=== PATIENT | male | born 1960 | race Caucasian/White ===

== ENCOUNTER 2017-02-20 04:54 | Emergency (ER) | payer OTHER ==
[~2017-02-20] VITALS: Ht 180.3 cm; Wt 83.5 kg
[2017-02-20 04:58] VITALS: Ht 180.3 cm; Wt 83.5 kg
[2017-02-20 06:30] VITALS: BP 112/66; PULSE 55; RESP 16; TEMP 97.6
[2017-02-20] MEDS ORDERED: SOD CHLORIDE 0.9% 1,000 ML IV STA (06:30)
[2017-02-20] MEDS ORDERED: FAMOTIDINE 20 MG INJ IV STA (06:30)
[2017-02-20] MEDS ORDERED: ONDANSETRON 4 MG INJ IV STA (06:30)
[2017-02-20 07:08] LABS: ADD SCAN DIFF NO
[2017-02-20 07:10] LABS: BASOPHIL # 0.1 10^3/ul (0.0-0.1); BASOPHILS % 0.9 % (0.0-2.0); EOSINOPHILS # 0.2 10^3/ul (0.0-0.5); EOSINOPHILS % 3.1 % (0.0-7.0); HEMATOCRIT 41.8 % (42.0-52.0); HEMOGLOBIN 14.7 g/dl (14.0-18.0); LYMPHOCYTES # 2.2 10^3/ul (0.8-2.9); LYMPHOCYTES % 37.8 % (15.0-51.0); MEAN CORPUSCULAR HEMOGLOBIN 30.6 pg (29.0-33.0); MEAN CORPUSCULAR HGB CONC 35.2 g/dl (32.0-37.0); MEAN CORPUSCULAR VOLUME 87.1 fl (82.0-101.0); MEAN PLATELET VOLUME 10.5 fl (7.4-10.4); MONOCYTE # 0.5 10^3/ul (0.3-0.9); MONOCYTES % 8.7 % (0.0-11.0); NEUTROPHIL # 2.9 10^3/ul (1.6-7.5); NEUTROPHILS % 49.3 % (39.0-77.0); PLATELET COUNT 162 10^3/UL (140-415); RED CELL DISTRIBUTION WIDTH 12.5 % (11.5-14.5); WHITE BLOOD COUNT 5.8 10^3/ul (4.8-10.8)
[2017-02-20 07:14] LABS: ADD UMIC NO; URINE BILIRUBIN (Dip) NEGATIVE (NEGATIVE); URINE BLOOD (Dip) NEGATIVE (NEGATIVE); URINE COLOR LT. YELLOW (YELLOW); URINE GLUCOSE (Dip) NEGATIVE (NEGATIVE); URINE KETONES (Dip) NEGATIVE (NEGATIVE); URINE LEUKOCYTE ESTERASE (Dip) NEGATIVE (NEGATIVE); URINE NITRITE (Dip) NEGATIVE (NEGATIVE); URINE TOTAL PROTEIN (Dip) NEGATIVE (NEGATIVE); URINE UROBILINOGEN (Dip) 0.2 E.U./dL (0.1-1.0)
[2017-02-20 07:28] LABS: ALBUMIN 4.3 g/dl (3.3-4.9); ALBUMIN/GLOBULIN RATIO 1.86; BILIRUBIN,INDIRECT 0.7 mg/dl (0-1.1); BILIRUBIN,TOTAL 0.7 mg/dl (0.2-1.3); CREATININE 0.92 mg/dl (0.61-1.24); TOTAL PROTEIN 6.6 g/dl (6.1-8.1)
[2017-02-20] MEDS ORDERED: ONDA4TAB8 PO (08:06)
[2017-02-20] MEDS ORDERED: MAG355OR14 PO (08:06)
[2017-02-20] MEDS ORDERED: IBUP-1542 PO (08:06)
--- NOTE | 2017-02-20 14:34 | ERD ---
ER Documentation Chief Complaint Date/Time DATE: 02/20/17 TIME: 14:30 Chief Complaint LEFT SIDED ABDOMINAL PAIN, NAUSEA, VOMITING X 9 SINCE 2AM, DIARRHEA HPI 57-year-old man otherwise healthy presents with left sided abdominal pain and cramping associated with about 5 episodes of clear nonbloody nonbilious emesis and a couple of loose stools beginning last night after eating tacos from a taco truck. He denies blood per rectum or melena, no fevers or chills, no chest pain or shortness of breath. ROS All systems reviewed and are negative except as per history of present illness. Medications Home Meds Active Scripts Ibuprofen* (Ibuprofen*) 600 Mg Tablet, 600 MG PO Q8 for PAIN AND/OR INFLAMMATION , #30 TAB Prov:INGA CALIX MD 02/20/17 Mag Hydrox/Al Hydrox/Simeth (Maalox Advanced Suspension) 355 Ml Oral.susp, 2 TSP PO TID, #24 OZ Prov:INGA CALIX MD 02/20/17 Ondansetron Hcl* (Zofran*) 4 Mg Tablet, 4 MG PO Q8H Y for NAUSEA AND/OR VOMITING , #14 TAB Prov:INGA CALIX MD 02/20/17 PMhx/Soc None Medical and Surgical Hx: pt denies Medical Hx, pt denies Surgical Hx Hx Alcohol Use: No Hx Substance Use: No Hx Tobacco Use: No Smoking Status: Never smoker FmHx Family History: No diabetes Physical Exam Vitals Vital Signs Date Time Temp Pulse Resp B/P Pulse Ox O2 Delivery O2 Flow Rate FiO2 02/20/17 06:30 97.6 55 16 112/66 100 Room Air 02/20/17 04:58 96.5 68 17 126/72 95 Physical Exam GENERAL: Well-developed, well-nourished, appears dehydrated HEENT: Dry mucous membranes, pink conjunctiva, no cervical spine tenderness or step-off deformities, no goiter, no jaundice or icterus, extraocular movements intact without pain. No submandibular induration, and no pharyngeal erythema NEURO: Alert and oriented 3, cranial nerves II through XII intact bilaterally, pupils equal round reactive to light, no focal deficits or facial asymmetry, sensation intact distally Strength 5/5 in upper and lower extremities bilaterally CARDIAC: Regular rate and rhythm, no murmurs rubs or gallops LUNGS: Clear bilaterally no wheezing crackles or stridor ABDOMEN: Soft nontender, no guarding, no rigidity, no rebound, no psoas sign no obturator sign. Normoactive bowel sounds SKIN: Warm and dry to touch, no abrasions, contusions, or hematomas, no lacerations, no ecchymosis, no target lesions, and without ulcers EXTREMITIES: No clubbing cyanosis or edema, calves are bilaterally symmetrical, no Homans sign, no popliteal cord sign. Distal pulses equal and bilateral PSYCH: Normal affect without agitation or irritability Result Diagram: 02/20/17 0650 02/20/17 0650 Results 24 hrs Laboratory Tests Test 02/20/17 06:50 White Blood Count 5.810^3/ul Red Blood Count 4.8010^6/ul Hemoglobin 14.7g/dl Hematocrit 41.8% Mean Corpuscular Volume 87.1fl Mean Corpuscular Hemoglobin 30.6pg Mean Corpuscular Hemoglobin Concent 35.2g/dl Red Cell Distribution Width 12.5% Platelet Count 28176^3/UL Mean Platelet Volume 10.5fl Neutrophils % 49.3% Lymphocytes % 37.8% Monocytes % 8.7% Eosinophils % 3.1% Basophils % 0.9% Nucleated Red Blood Cells % 0.0/100WBC Neutrophils # 2.910^3/ul Lymphocytes # 2.210^3/ul Monocytes # 0.510^3/ul Eosinophils # 0.210^3/ul Basophils # 0.110^3/ul Nucleated Red Blood Cells # 0.010^3/ul Urine Color LT. YELLOW Urine Clarity CLEAR Urine pH 6.0 Urine Specific [place] 1.025 Urine Ketones NEGATIVE Urine Nitrite NEGATIVE Urine Bilirubin NEGATIVE Urine Urobilinogen 0.2 E.U./dL Urine Leukocyte Esterase NEGATIVE Urine Hemoglobin NEGATIVE Urine Glucose NEGATIVE% Urine Total Protein NEGATIVE Sodium Level 139mmol/L Potassium Level 4.0mmol/L Chloride Level 109mmol/L Carbon Dioxide Level 25mmol/L Anion Gap 9 Blood Urea Nitrogen 18mg/dl Creatinine 0.92mg/dl Glucose Level 100mg/dl Calcium Level 9.0mg/dl Total Bilirubin 0.7mg/dl Direct Bilirubin 0.00mg/dl Indirect Bilirubin 0.7mg/dl Aspartate Amino Transf (AST/SGOT) 29IU/L Alanine Aminotransferase (ALT/SGPT) 33IU/L Alkaline Phosphatase 40IU/L Total Protein 6.6g/dl Albumin 4.3g/dl Globulin 2.30g/dl Albumin/Globulin Ratio 1.86 Lipase 98U/L Current Medications Medications (Trade) Dose Ordered Sig/Juan C Route PRN Reason Start Time Stop Time Status Last Admin Dose Admin Sodium Chloride (NS) 1,000 ml @ 1,000 mls/hr Q1H STAT IV 02/20/17 06:30 02/20/17 07:29 DC 02/20/17 06:58 Ondansetron HCl (Zofran Inj) 4 mg ONCE STAT IV 02/20/17 06:30 02/20/17 06:32 DC 02/20/17 06:58 Famotidine (Pepcid Iv) 20 mg ONCE STAT IV 02/20/17 06:30 02/20/17 06:32 DC 02/20/17 06:58 Procedures/MDM IV line was established patient was placed on rn cardiac rehab rhythm strip revealed a sinus rhythm at about 80 bpm with upright P and T waves. Patient was afebrile. I administered 1 L normal saline intravenously, Zofran 4 mg IV, famotidine 40 mg IV with good response. CBC was normal, electrolytes revealed dehydration, liver function tests normal, urine analysis negative for infection. Differential diagnoses considered, included but not limited to acute coronary syndrome, pulmonary embolism, aortic dissection, abdominal aortic aneurysm, sepsis, stroke, meningitis, encephalitis, pneumonia, appendicitis, cholecystitis , bowel obstruction, pyelonephritis, nephrolithiasis, cystitis, as well as metabolic, hematologic, and electrolyte abnormalities. As well as abscess, cellulitis, fractures, and dislocations. Patient feels much better at this time, and vital signs are normal, symptoms have improved. I did give strict instructions to return to the ED if symptoms continue or worsen, patient will otherwise follow-up with primary care physician. Patient understood instructions and agreed to plan. Disclaimer: Inadvertent spelling or grammatical errors are likely due to EHR/ dictation software use and do not reflect on the overall quality of patient care. Departure Diagnosis: Primary Impression: Vomiting Vomiting type: unspecified Vomiting Intractability: non-intractable Nausea presence: with nausea Qualified Code: R11.2 - Non-intractable vomiting with nausea, unspecified vomiting type Additional Impressions: Abdominal pain Abdominal location: lower abdomen, unspecified Qualified Code: R10.30 - Lower abdominal pain Dehydration Condition: Good Patient Instructions: Vomiting And Diarrhea, Nonspecific (Adult) INGA CALIX MD Feb 20, 2017 14:34
== END 2017-02-20 08:16 | disposition home or self-care (01) ==
LOC: E/R 04:54
DX: R11.2 Nausea with vomiting, unspecified (principal); R10.30 Lower abdominal pain, unspecified; E86.0 Dehydration
CPT/HCPCS: 36415; 80053; 81003; 83690; 85025; 96374; 96375; J2405; J7030; Z7502; Z7610

== ENCOUNTER 2018-07-15 16:49 | Emergency (ER) | END 2018-07-15 18:15 | disposition home or self-care (01) ==

== ENCOUNTER 2018-12-12 09:47 | Emergency (ER) | payer OTHER ==
[~2018-12-12] VITALS: Ht 172.7 cm; Wt 78.2 kg
[~2018-12-12 09:47] MED LIST: AMOX1TAB10 PO; IBUP-1542 PO; IBUP-1561 PO; MAG355OR14 PO; ONDA4TAB8 PO; PRED20TA PO
[2018-12-12 09:49] VITALS: Ht 172.7 cm; Wt 78.2 kg
[2018-12-12] MEDS ORDERED: AZITHROMYCIN 250 MG TAB PO ONE (12:00)
[2018-12-12] MEDS ORDERED: CEFTRIAXONE 250 MG INJ IM ONE (12:00)
--- NOTE | 2018-12-12 12:21 | ERD ---
ER Documentation Chief Complaint Chief Complaint AP & NUASEA AND VOMITTING X2 DAYS, SORETHROAT LAST NIGHT ROS All systems reviewed and are negative except as per history of present illness. Medications Home Meds Discontinued Scripts Ibuprofen* (Motrin*) 400 Mg Tab, 400 MG PO Q8, #15 TAB Prov:GURJIT LANGSTON MD 07/15/18 Prednisone* (Prednisone*) 20 Mg Tab, 40 MG PO DAILY for 4 Days, TAB Prov:GURJIT LANGSTON MD 07/15/18 Amoxicillin/Potassium Clav (Amox-Clav 875-125 mg Tablet) 875-125 mg Tab, 1 TAB PO BID for 10 Days, #20 TAB Prov:GURJIT LANGSTON MD 07/15/18 Ibuprofen* (Ibuprofen*) 600 Mg Tablet, 600 MG PO Q8 for PAIN AND/OR INFLAMMATION, #30 TAB Prov:INGA CALIX MD 02/20/17 Mag Hydrox/Al Hydrox/Simeth (Maalox Advanced Suspension) 355 Ml Oral.susp, 2 TSP PO TID, #24 OZ Prov:INGA CALIX MD 02/20/17 Ondansetron Hcl* (Zofran*) 4 Mg Tablet, 4 MG PO Q8H PRN for NAUSEA AND/OR VOMITING, #14 TAB Prov:INGA CALIX MD 02/20/17 Allergies Allergies: Coded Allergies: No Known Allergy (Unverified , 12/12/18) PMhx/Soc Medical and Surgical Hx: pt denies Medical Hx, pt denies Surgical Hx Hx Alcohol Use: No Hx Substance Use: No Hx Tobacco Use: No Smoking Status: Never smoker Physical Exam Vitals Vital Signs Date Temp Pulse Resp B/P (MAP) Pulse Ox O2 O2 Flow FiO2 Time Delivery Rate 12/12/18 97.8 71 18 116/70 97 09:49 (85) Physical Exam Const: No acute distress Head: Atraumatic Eyes: Normal Conjunctiva ENT: Normal External Ears, Nose and Mouth. Neck: Full range of motion. No meningismus. Resp: Clear to auscultation bilaterally Cardio: Regular rate and rhythm, no murmurs Abd: Soft, non tender, non distended. Normal bowel sounds Skin: No petechiae or rashes Back: No midline or flank tenderness Ext: No cyanosis, or edema Neur: Awake and alert Psych: Normal Mood and Affect Results 24 hrs Current Medications Medications Dose Sig/Juan C Start Time Status Last (Trade) Ordered Route PRN Stop Time Admin Dose Reason Admin Ceftriaxone 250 mg ONCE ONCE 12/12/18 DC 12/12/18 Sodium IM 12:00 11:55 (Rocephin) 12/12/18 12:01 1,000 mg ONCE ONCE 12/12/18 DC 12/12/18 Azithromycin PO 12:00 11:54 (Zithromax) 12/12/18 12:01 Procedures/MDM DOCUMENTS REVIEWED: ED nurse, prior ED, prior records MEDICAL DECISION MAKING: []. Stable for discharge with precautionary instructions and outpatient follow-up as counseled. Counseled patient patient regarding diagnostic workup, diagnosis and need for followup. Understands to return to ED if symptoms recur, worsen or any other concerns. Departure Diagnosis: Primary Impression: Pharyngitis, chronic Additional Impressions: Possible exposure to STD Lower abdominal pain, unspecified Condition: Stable JB PATTEN MD Dec 12, 2018 12:21
[2018-12-12 12:37] VITALS: BP 121/64; PULSE 74; RESP 20
== END 2018-12-12 12:40 | disposition home or self-care (01) ==
LOC: E/R 09:47
DX: J31.2 Chronic pharyngitis (principal); R10.30 Lower abdominal pain, unspecified; Z20.2 Contact with and (suspected) exposure to infections with a predominantly sexual mode of transmission
CPT/HCPCS: 87591; 87880; 96372; J0696; Z7502; Z7610

== ENCOUNTER 2019-05-15 20:01 | Emergency (ER) | payer SELFPAY | END 2019-05-15 20:35 | disposition left against medical advice (07) | LOC: E/R 20:01 | DX: Z53.21 Procedure and treatment not carried out due to patient leaving prior to being seen by health care provider (principal) ==

== ENCOUNTER 2019-06-05 09:43 | Emergency (ER) | payer SELFPAY ==
[~2019-06-05] VITALS: Ht 172.7 cm; Wt 82.0 kg
[2019-06-05 09:48] VITALS: BP 128/84; PULSE 80; RESP 18; Ht 172.7 cm; Wt 82.0 kg
[2019-06-05] MEDS ORDERED: AZITHROMYCIN 500 MG TAB PO ONE (11:00)
[2019-06-05] MEDS ORDERED: CEFTRIAXONE 250 MG INJ IM ONE (11:00)
[2019-06-05] MEDS ORDERED: LIDOCAINE 1% (MDV) 20 ML INJ SC ONE (11:00)
== END 2019-06-05 11:13 | disposition home or self-care (01) ==
LOC: FTE 09:43
DX: M65.312 Trigger thumb, left thumb (principal); R30.0 Dysuria; Z11.3 Encounter for screening for infections with a predominantly sexual mode of transmission
CPT/HCPCS: 87591; J0696; 96372